=== PATIENT | male | born 1950 | race Caucasian/White ===

== ENCOUNTER → 2017-09-28 | Outpatient (CLI) | payer OTHER, BC ==
[~2017-09-28] VITALS: Ht 180.3 cm; Wt 80.3 kg
[~2017-09-28] MED LIST: ASPIR 8181 MG PO; KRILL OIL500 MG PO; LIPITOR10 MG PO; LUNESTA3 MG PO; MEN'S MULTI-VI1 EACH PO
--- NOTE | ~2017-09-28 | P ---
[facility] [place] [address] PROCEDURE REPORT Name: DEEPAK FITCH Room #: REG [facility]#: [id number] Admission: 09/28/17 Attend Phys: Isak Edouard MD Discharge: Date of : 52 Report #: [id number] THIS REPORT FOR: //name// CC: Isak William BRIEF HISTORY: The patient is a 66-year-old male with a history of colon adenomas for high risk screening colonoscopy. He also has a history of a submucosal lesion of the cecum. PREOPERATIVE DIAGNOSIS: High risk screening colonoscopy due to history of colon adenomas. POSTOPERATIVE DIAGNOSES: 1. Multiple colon polyps. 2. Submucosal lesion, proximal ascending colon. MEDICATIONS: Deep sedation with propofol per anesthesia. SPECIMEN: 1. Polyp, proximal ascending colon. 2. Biopsy submucosal lesion, proximal ascending colon. 3. Polyp, distal ascending colon. 4. Polyp at 50 cm. ESTIMATED BLOOD LOSS: 3 mL. PROCEDURE: Colonoscopy to the cecum and terminal ileum with snare polypectomy and biopsy. FINDINGS: Prior to propofol sedation, procedure of colonoscopy discussed with the patient as well as potential risks and its complications. He indicates he understands and desires to proceed. DESCRIPTION OF PROCEDURE: With the patient in the left lateral decubitus position, digital examination was completed which revealed no abnormalities. Subsequently, the [place] video colonoscope was introduced in the rectum, advanced under direct vision to the cecum without difficulty. The cecum was identified by the ileocecal valve and the appendiceal orifice. I was able to visualize the distal segment of the terminal ileum, which was inspected and noted to be unremarkable. At that point, the scope was slowly withdrawn and careful circumferential views were obtained. As we withdrew the scope, the appendiceal orifice was identified. There were no submucosal mass lesions associated with the appendiceal orifice. However, in the very proximal ascending colon was a submucosal lesion that was no more than 1.5 cm in greatest dimension. It was intermittently seen. It was hard and firm. The overlying mucosa was normal. [facility] [address] [place] [address] PROCEDURE REPORT Name: DEEPAK FITCH Room #: REG [facility].#: [id number] Admission: 09/28/17 Attend Phys: Isak Edouard MD Discharge: Date of : 52 Report #: [id number] Biopsies were obtained, but again this has a submucosal appearance. It is noteworthy that based on images from prior colonoscopy, it is no larger than noted on previous colonoscopy. As we withdrew the scope, in the proximal ascending colon a 6 mm sessile polyp was seen and removed by cold snare polypectomy and recovered. The scope was withdrawn and in the distal ascending colon another polyp was seen. This was a diminutive polyp and was removed completely with a biopsy forceps. The scope was further withdrawn and the mucosa was within normal limits. No additional abnormalities were noted until about 50 cm at which point another diminutive polyp was seen and removed by biopsy. The scope was further withdrawn and no additional polyps were seen. In the sigmoid colon, there was moderate diverticular disease without endoscopic evidence of diverticulitis. The scope was withdrawn from the rectum. No abnormalities were seen. Upon retroflexion, no abnormalities were seen. The scope was withdrawn. The patient tolerated the procedure well. CONDITION OF THE PATIENT UPON DISCHARGE: Following procedure, the patient drowsy, aroused, conversant and will be discharged to home when fully ambulatory. INSTRUCTIONS TO THE PATIENT AND FAMILY AT THE TIME OF DISCHARGE: Three polyps were identified and removed as described above. We will follow up on the path. However, at this point, I suggest that he return in 3 years for another high risk screening colonoscopy. As for the lesion in the proximal ascending colon, it does not appear to be any larger than the previous exam. Previous notes talked about consideration of surgery, which was not done in 2009. Based on the fact that it is still relatively small and does not appear to have changed much, it appeared to be stable, I do not see the need for surgical intervention. He can follow up with repeat colonoscopy in about 3 years. Last colonoscopy was more than 5 years ago. Withdrawal time from the cecum was 13 minutes 7 seconds. <ELECTRONICALLY SIGNED> By: Isak Edouard MD 10/04/17 1155 1130 28 Isak Edouard MD /nt
== END | disposition home or self-care (01) ==
LOC: GI 08:11
DX: Z12.11 Encounter for screening for malignant neoplasm of colon (principal); Z86.010 Personal history of colon polyps; D12.2 Benign neoplasm of ascending colon; D12.5 Benign neoplasm of sigmoid colon; K63.89 Other specified diseases of intestine; E78.00 Pure hypercholesterolemia, unspecified; F17.210 Nicotine dependence, cigarettes, uncomplicated; Z87.19 Personal history of other diseases of the digestive system; Z85.828 Personal history of other malignant neoplasm of skin; Z98.890 Other specified postprocedural states; Z79.82 Long term (current) use of aspirin; Z79.899 Other long term (current) drug therapy
CPT/HCPCS: 62110; 62900

== ENCOUNTER → 2021-04-05 | Outpatient (CLI) | payer OTHER, BC ==
[~2021-04-05] MED LIST changes: +BIOFLEX TABLET1 EACH PO; +COQ-10100 MG PO; -MEN'S MULTI-VI1 EACH PO; +MEN'S MULTIVIT1 EACH PO
== END ==
LOC: LAB 09:37
PROVIDERS: ATTEND Student in an Organized Health Care Education/Training Program
DX: Z01.812 Encounter for preprocedural laboratory examination (principal); Z20.822 Contact with and (suspected) exposure to COVID-19

== ENCOUNTER → 2021-04-06 | Outpatient (CLI) | payer OTHER, BC ==
[~2021-04-06] VITALS: Ht 180.3 cm; Wt 79.4 kg
--- NOTE | 2021-04-06 14:52 | P ---
[facility] [place] [address] PROCEDURE REPORT Name: DEEPAK FITCH Room #: REG [facility] Mariano.#: [id number] Admission: 04/06/21 Attend Phys: Pritesh Malhotra Discharge: Date of : 52 Report #: [id number] THIS REPORT FOR: cc: Judy William MD, Kerry B. MD Mc[place]hin[place], Christian C. MD ~ cc: Judy William MD DATE OF SERVICE: 04/06/2021 PROCEDURE PERFORMED: Colonoscopy with biopsies. HISTORY OF PRESENT ILLNESS: The patient is a 70-year-old male with a history of colon polyps, here for routine followup. He denies any symptoms, no family history of colon cancer. DESCRIPTION OF PROCEDURE: The risks and benefits of the procedure were explained to the patient, those risks including but not limited to bleeding, perforation and the risk of sedation. He understood these risks and gave informed consent. Sedation was given using propofol per Anesthesia. Next, a digital rectal exam was initially performed, which was normal. Next, using a standard Olympus colonoscope, the scope was placed in the patient's anus and advanced under direct vision to the cecum. The overall prep was good. The cecum and ileocecal valve were normal in appearance. Multiple diverticula were noted in the ascending, transverse, descending and sigmoid colon. In the transverse colon, also a 4 mm sessile polyp was noted and this was removed with cold forceps. In the descending colon, a 3 mm sessile polyp noted and removed with cold forceps. In the rectum, a 3 mm sessile polyp noted and removed with cold forceps. On retroflexion, no abnormalities were noted. The scope was then withdrawn and the procedure terminated. The patient tolerated the procedure well. IMPRESSION: 1. Three small colonic polyps. 2. Pandiverticulosis. 3. Otherwise, normal colonoscopy. RECOMMENDATIONS: 1. Await biopsy results. 2. Repeat colonoscopy in [address] [address] PROCEDURE REPORT Name: LITTLEDEEPAKELEONORA TRINH [id number] Admission: 04/06/21 Attend Phys: Pritesh Malhotra Discharge: Date of : 52 Report #: [id number] Thank you for allowing me to participate in his care. <ELECTRONICALLY SIGNED> By: Pritesh Keyes MD 04/06/21 1452 1015 1210 Pritesh Keyes MD /nt
--- NOTE | 2021-04-08 17:06 | PATH ---
[facility] [place] [address] PATHOLOGY RPT PROCEDURE Name: CRISTIAN FITCH Room #: REG [facility] M.R.#: [id number] Admission: 04/06/21 Date of : 52 Discharge: Report #: [id number] Path Case #: [id number] [facility] Accession Number: [id number] . 01 Material submitted: . PART A: colon - TRANSVERSE COLON POLYP. Modifiers: transverse PART B: colon - DESCENDING POLYP. Modifiers: descending PART C: rectum - RECTAL POLYP . 01 Clinical history: . DIVERTICULOSIS COLONOSCOPY . 01 Diagnosis: A. Colonic mucosa "transverse colon polyp", biopsy: - Tubular adenoma. - There is no evidence of high-grade dysplasia or malignancy. . B. Colonic mucosa "descending polyp", biopsy: - Tubular adenoma. - There is no evidence of high-grade dysplasia or malignancy. . C. Colonic mucosa "rectal polyp", biopsy: - Fragments revealing hyperplastic polyp. - There is no evidence of adenomatous change, high-grade dysplasia or malignancy. (SHA:pit; 04/08/2021) QTP 04/08/2021 1416 Local . 01 Electronically signed: . Atif Arciniega MD, Pathologist NPI- [id number] . 01 Gross description: . A. The specimen is received in formalin, labeled "Cristian Fitch, transverse colon". The source is additionally listed on the requisition as "transverse colon polyp". Received are 2 segments of pale romo tissue measuring 0.2 and 0.3 cm in maximum dimensions. The specimen is entirely submitted in cassette A1. . B. The specimen is received in formalin, labeled " Cristian Fitch, descending colon". The source is additionally listed on the requisition as "descending polyp". Received are 2 segments of pale romo tissue measuring 0.2 and 0.4 cm in maximum dimensions. The specimen is entirely submitted in cassette B1. . C. The specimen is received in formalin, labeled " Cristian Fitch, [address] [address] PATHOLOGY RPT PROCEDURE Name: CRISTIAN FITCH GAYATHRI Room #: REG [facility].#: [id number] Admission: 04/06/21 Date of : 52 Discharge: Report #: [id number] Path Case #: [id number] rectal polyp". Received are 2 segments of pale romo tissue measuring 0.2 and 0.3 cm in maximum dimensions. The specimen is entirely submitted in cassette C1. ([facility]; 04/06/2021) NRI/NRI 04/06/2021 2159 Local . 01 Pathologist provided ICD-10: D12.3, D12.4, K62.1 . 01 CPT . 370374, 934487, 153126 Specimen Comment: A courtesy copy of this report has been sent to [phone], [phone] Specimen Comment: [id number] Specimen Comment: Report sent to / DR BYRD Performed at: [address] [facility], [place], [place] [id number] MD Atif Arciniega MD Phone: [phone]
== END | disposition home or self-care (01) ==
LOC: GI → EDSTATUS 08:33 → GI 09:03
PROVIDERS: ATTEND Specialist
DX: Z12.11 Encounter for screening for malignant neoplasm of colon (principal); Z86.010 Personal history of colon polyps; D12.4 Benign neoplasm of descending colon; D12.3 Benign neoplasm of transverse colon; K62.1 Rectal polyp; K57.30 Diverticulosis of large intestine without perforation or abscess without bleeding; E78.00 Pure hypercholesterolemia, unspecified; Z98.890 Other specified postprocedural states; Z79.899 Other long term (current) drug therapy; Z85.828 Personal history of other malignant neoplasm of skin; Z87.891 Personal history of nicotine dependence
CPT/HCPCS: 62110; 62900